=== PATIENT | female | born 1930 | race Caucasian/White ===

== ENCOUNTER 2018-01-13 23:04 | Emergency (ER) | payer MEDICARE, MEDICAID ==
[2018-03-15 13:15] VITALS: BMI 17.1
== END 2018-01-14 04:06 | disposition home or self-care (01) ==
LOC: D.ER 23:04
DX: S00.83XA Contusion of other part of head, initial encounter (principal); W19.XXXA Unspecified fall, initial encounter; Y93.89 Activity, other specified; Y92.129 Unspecified place in nursing home as the place of occurrence of the external cause; S02.2XXA Fracture of nasal bones, initial encounter for closed fracture; E11.9 Type 2 diabetes mellitus without complications; E03.9 Hypothyroidism, unspecified; H40.9 Unspecified glaucoma; K21.9 Gastro-esophageal reflux disease without esophagitis; F03.90 Unspecified dementia, unspecified severity, without behavioral disturbance, psychotic disturbance, mood disturbance, and anxiety; Z95.0 Presence of cardiac pacemaker

== ENCOUNTER 2018-01-24 14:29 | Emergency (ER) | payer MEDICARE, MEDICAID ==
[2018-01-24 15:13] LABS: BASOPHILS 0.3 % (0-2); EOSINOPHILS 0.9 % (0-7); HEMATOCRIT 36.1 % (36.0-48.0); HEMOGLOBIN 11.4 g/dL (12-16); IMMATURE GRANULOCYTES 0.5 % (0-5); LYMPHOCYTES 17.5 % (15-50); MCH 31.2 pg (26.0-34.0); MCHC 31.6 g/dL (31.0-37.0); MCV 98.9 fL (80.0-100.0); MONOCYTES 5.7 % (2-11); NEUTROPHILS 75.1 % (40-80); PLATELET COUNT 408 10x3/uL (130-400); RBC 3.65 10x6/uL (4.00-5.40); RDW 13.3 % (11.5-14.5); WBC 8.6 10x3/uL (4.8-10.8)
[2018-01-24 15:29] LABS: ALBUMIN 3.6 g/dL (3.4-5.0); ANION GAP 7.3 mmol/L (8-16); BILIRUBIN - TOTAL 0.2 mg/dL (0.2-1.3); CALCIUM 9.4 mg/dL (8.5-10.1); CARBON DIOXIDE 35.5 mmol/L (21.0-32.0); CREATININE - SERUM 1.1 mg/dL (0.6-1.3); POTASSIUM - SERUM 3.8 mmol/L (3.5-5.1); PROTEIN - SERUM 7.8 g/dL (6.4-8.2)
[2018-01-24 15:52] LABS: APPEARANCE CLEAR (CLEAR); BILIRUBIN NEGATIVE (NEGATIVE); COLOR YELLOW (YELLOW); GLUCOSE NEGATIVE (NEGATIVE); KETONE NEGATIVE (NEGATIVE); NITRITE NEGATIVE (NEGATIVE); PROTEIN TRACE mg/dL (NEGATIVE); SPECIFIC GRAVITY 1.015 (1.005-1.020); UROBILINOGEN NORMAL (NORMAL)
[2018-01-24 15:53] LABS: AMORPHOUS SEDIMENT <1+ /lpf (NONE SEEN); BACTERIA MANY /hpf (NONE SEEN); EPITHELIAL CELLS OCC /hpf (0-5); GRANULAR CAST NONE SEEN /lpf (NONE SEEN); HYALINE CAST NONE SEEN /lpf (NONE SEEN); MUCUS NONE SEEN /lpf (NONE SEEN); RED CELL CAST NONE SEEN /lpf (NONE SEEN); RED CELLS - URINE NONE SEEN /hpf (0-5); SPERMATOZOA NONE SEEN /hpf (NONE SEEN); WAXY CAST NONE SEEN /lpf (NONE SEEN); WHITE CELLS - URINE 0-5 /hpf (0-5); YEAST NONE SEEN /hpf (NONE SEEN)
== END 2018-01-24 19:08 | disposition home or self-care (01) ==
LOC: D.ER 14:29
PROVIDERS: Family Medicine
DX: K59.00 Constipation, unspecified (principal); N39.0 Urinary tract infection, site not specified; F03.90 Unspecified dementia, unspecified severity, without behavioral disturbance, psychotic disturbance, mood disturbance, and anxiety; E11.9 Type 2 diabetes mellitus without complications; K21.9 Gastro-esophageal reflux disease without esophagitis; H40.9 Unspecified glaucoma; E03.9 Hypothyroidism, unspecified; Z95.0 Presence of cardiac pacemaker

== ENCOUNTER 2018-03-14 08:40 | Inpatient (IN) | payer MEDICARE, MEDICAID ==
[~2018-03-14] VITALS: Ht 175.3 cm; Wt 52.6 kg
--- NOTE | ~2018-03-14 | EC ---
PATIENT:ERIKA PHELPS DATE OF SERVICE: 03/14/18 SEX: F MEDICAL RECORD: [id number] DATE OF : [birth year] LOCATION:[facility] AGE OF PATIENT: 87 ADMISSION DATE: 03/14/18 REFERRING PHYSICIAN: INTERPRETING PHYSICIAN: ARIANNA CAMACHO MD ECHOCARDIOGRAM REPORT ECHO CHARGES 4 ECHO COMPLETE Date: 03/15 CLINICAL DIAGNOSIS: CHF ECHOCARDIOGRAPHIC MEASUREMENTS (adult normal given) AC root (d.<3.7cm) 3.3 cm LV Septum d (<1.2 cm> 1.6 cm Valve Excursion 1.4 cm LV Septum (systole) 1.9 cm Left Atria (s.<4.0cm> 4.0 cm LVPW d(<1.2cm) 1.6 cm RV (d.<2.3cm) 5.1 cm LVPW (sytole) 1.8 cm LV diastole(<5.6CM) 4.1 cm MV E-F(>70mm/sec) cm LV systole 3.1 cm LVOT Diameter 1.7 cm MV exc.(>10mm) 1.2 cm Est.ejection fraction (50-75%) % DOPPLER: LVIT cm/sec A 85.0 cm/sec E 63.0 cm/sec LA cm/sec RVSP 55 mmHg LVOT 93 cm/sec AOP1/2T m/s Asc. Ao 151 cm/sec RVOT 83 cm/sec RA cm/sec PA 103 cm/sec AV Gradient Peak 9.10 mmHg AV Mean 4.63 mmHg AV Area 1.3 cm MV Gradient Peak 3.95 mmHg MV Mean 1.27 mmHg MV Area cm COMMENTS: Electronic Gaming Device Supervisor: 2 PAO BOOKER Guide Setter: 3 Dr. Mckenzie TAPE# PACS Pericardial Effusion N DATE OF SERVICE: Adequate 2-D echo, color flow and spectral Doppler, and M-mode. LVH present. LV internal dimension is normal. Wall motion is normal. EF is greater than or equal to 55%. Aortic valve is tricuspid. No evidence of stenosis by Doppler interrogation. Left atrium is upper limits of normal 4 cm. Mitral valve shows no prolapse. Mild MR. Right-sided chambers appear grossly normal. Mild TR. Estimated RV systolic pressure estimated greater than or equal to 55 mmHg via the continuity equation. ECHOCARDIOGRAM REPORT [id number] ERIKA PHELPS TRANSINT:[id number] Voice Confirmation ID: [id number] DOCUMENT ID: [id number] ARIANNA CAMACHO MD at 1214 CC: [id number] DICTATION DATE: 03/15/18 1230 CHAIR INSTALLER: 03/15/18 1650 DIS IN 03/18/18 [facility] [id number] [id number]
[2018-03-14 10:26] LABS: BASOPHILS 0.2 % (0-2); EOSINOPHILS 0.8 % (0-7); HEMATOCRIT 31.3 % (36.0-48.0); HEMOGLOBIN 10.2 g/dL (12-16); IMMATURE GRANULOCYTES 0.4 % (0-5); LYMPHOCYTES 17.8 % (15-50); MCH 30.7 pg (26.0-34.0); MCHC 32.6 g/dL (31.0-37.0); MCV 94.3 fL (80.0-100.0); MONOCYTES 6.6 % (2-11); NEUTROPHILS 74.2 % (40-80); PLATELET COUNT 421 10x3/uL (130-400); RBC 3.32 10x6/uL (4.00-5.40); RDW 15.4 % (11.5-14.5); WBC 8.5 10x3/uL (4.8-10.8)
[2018-03-14 10:31] LABS: ALBUMIN 2.6 g/dL (3.4-5.0); ANION GAP 10.2 mmol/L (8-16); BILIRUBIN - TOTAL 0.31 mg/dL (0.2-1.3); CALCIUM 8.7 mg/dL (8.5-10.1); CARBON DIOXIDE 27.1 mmol/L (21.0-32.0); CREATININE - SERUM 0.8 mg/dL (0.6-1.3); POTASSIUM - SERUM 4.3 mmol/L (3.5-5.1); PROTEIN - SERUM 6.1 g/dL (6.4-8.2)
[2018-03-14 10:38] LABS: MAGNESIUM - SERUM 1.9 mg/dL (1.8-2.4)
[2018-03-14 12:01] LABS: APPEARANCE SLT CLOUDY (CLEAR); BACTERIA MODERATE /hpf (NONE SEEN); BILIRUBIN NEGATIVE (NEGATIVE); COLOR YELLOW (YELLOW); EPITHELIAL CELLS 0-5 /hpf (0-5); GLUCOSE NEGATIVE (NEGATIVE); KETONE NEGATIVE (NEGATIVE); MUCUS <1+ /lpf (NONE SEEN); NITRITE NEGATIVE (NEGATIVE); PROTEIN 1+ mg/dL (NEGATIVE); RED CELLS - URINE 0-5 /hpf (0-5); SPECIFIC GRAVITY 1.015 (1.005-1.020); UROBILINOGEN NORMAL (NORMAL); YEAST >1+ WITH HYPHAE /hpf (NONE SEEN)
[2018-03-14] MEDS ORDERED: LISINOPRIL5 MG PO (12:58)
[2018-03-14] MEDS ORDERED: MEGACE400 MG/10 PO ×2 (12:59→13:00)
[2018-03-14] MEDS ORDERED: MULTIPLE VITAMI1 TA1 PO (13:02)
[2018-03-14] MEDS ORDERED: NAMENDA10 MG PO (13:04)
[2018-03-14] MEDS ORDERED: BETAPACE 80 MG80 MG PO (13:07)
[2018-03-14] MEDS ORDERED: ACETAMINOPHEN325 MG PO (13:31)
[2018-03-14 16:29] VITALS: BP 161/53; BMI 21.4
[2018-03-14 17:07] VITALS: BP 164/61
[2018-03-14 20:00] VITALS: BP 172/70
[2018-03-15] VITALS: BP 152/62
[2018-03-15 04:00] VITALS: BP 175/68
[2018-03-15 06:26] LABS: BASOPHILS 0.2 % (0-2); EOSINOPHILS 0.8 % (0-7); HEMATOCRIT 32.6 % (36.0-48.0); HEMOGLOBIN 10.5 g/dL (12-16); IMMATURE GRANULOCYTES 0.3 % (0-5); LYMPHOCYTES 16.6 % (15-50); MCH 30.4 pg (26.0-34.0); MCHC 32.2 g/dL (31.0-37.0); MCV 94.5 fL (80.0-100.0); MEAN PLATELET VOLUME 8.8 fL (7.4-10.4); MONOCYTES 7.1 % (2-11); PLATELET COUNT 388 10x3/uL (130-400); RBC 3.45 10x6/uL (4.00-5.40); RDW 15.3 % (11.5-14.5); WBC 8.7 10x3/uL (4.8-10.8)
[2018-03-15 06:57] LABS: ANION GAP 12.5 mmol/L (8-16); CALCIUM 9.1 mg/dL (8.5-10.1); CARBON DIOXIDE 29.5 mmol/L (21.0-32.0); THYROID STIMULATING HORMONE 2.76 uIU/mL (0.36-3.74)
[2018-03-15 09:09] VITALS: BP 185/75
[2018-03-15 11:53] VITALS: BP 171/61
[2018-03-15 13:15] VITALS: Ht 175.3 cm; Wt 52.6 kg
[2018-03-15 16:50] VITALS: BP 157/71
[2018-03-15 20:30] VITALS: BP 153/57
[2018-03-16 01:26] VITALS: BP 143/70
[2018-03-16 05:37] VITALS: BP 181/76
[2018-03-16 08:40] VITALS: BP 165/66
[2018-03-16 12:32] VITALS: BP 175/73
[2018-03-16 16:13] VITALS: BP 164/76
[2018-03-16 22:35] VITALS: BP 157/58
[2018-03-17 07:10] VITALS: BP 181/70
[2018-03-17 08:02] VITALS: BP 97/46
[2018-03-17 11:05] VITALS: BP 180/68
[2018-03-17 12:14] VITALS: BP 110/59
[2018-03-17] MEDS ORDERED: MAXIPIME 2 GM/D52 G1 IV (15:28)
[2018-03-17] MEDS ORDERED: DIFLUCAN100 MG PO (15:29)
[2018-03-17] MEDS ORDERED: LISINOPRIL10 MG PO (15:33)
[2018-03-17] MEDS ORDERED: NAMENDA5 MG PO (15:35)
[2018-03-17] MEDS ORDERED: COREG 3.1253.125 MG PO (15:37)
[2018-03-17 15:42] VITALS: BP 148/77
[2018-03-17 20:43] VITALS: BP 125/62
[2018-03-18 00:10] VITALS: BP 170/53
[2018-03-18 05:12] VITALS: BP 150/56
[2018-03-18 09:49] VITALS: BP 158/50
[2018-03-18] MEDS ORDERED: VANCOMYCIN 750750 MG IV (10:13)
== END 2018-03-18 11:02 | DRG 291 ==
LOC: D.ER 08:40 → D.M2 10:48 → D.MS 03-16 08:35
PROVIDERS: Emergency Medicine; Family Medicine
DX: I13.0 Hypertensive heart and chronic kidney disease with heart failure and stage 1 through stage 4 chronic kidney disease, or unspecified chronic kidney disease (principal); J18.9 Pneumonia, unspecified organism; B37.49 Other urogenital candidiasis; I50.32 Chronic diastolic (congestive) heart failure; E11.22 Type 2 diabetes mellitus with diabetic chronic kidney disease; N18.9 Chronic kidney disease, unspecified; I25.118 Atherosclerotic heart disease of native coronary artery with other forms of angina pectoris; K21.9 Gastro-esophageal reflux disease without esophagitis; F03.90 Unspecified dementia, unspecified severity, without behavioral disturbance, psychotic disturbance, mood disturbance, and anxiety; D64.9 Anemia, unspecified; Z74.09 Other reduced mobility; E03.9 Hypothyroidism, unspecified; R41.0 Disorientation, unspecified; N13.9 Obstructive and reflux uropathy, unspecified; Z95.0 Presence of cardiac pacemaker; Z95.1 Presence of aortocoronary bypass graft

== ENCOUNTER 2018-04-26 20:00 | Emergency (ER) | payer MEDICARE, MEDICAID ==
[~2018-04-26] VITALS: Ht 175.3 cm; Wt 63.5 kg
[~2018-04-26 20:00] MED LIST: ACETAMINOPHEN325 MG PO; BETAPACE 80 MG80 MG PO; COREG 3.1253.125 MG PO; DIFLUCAN100 MG PO; LISINOPRIL10 MG PO; LISINOPRIL5 MG PO; MAXIPIME 2 GM/D52 G1 IV; MEGACE400 MG/10 PO; MULTIPLE VITAMI1 TA1 PO; NAMENDA10 MG PO; NAMENDA5 MG PO; VANCOMYCIN 750750 MG IV
[2018-04-26 20:02] VITALS: Ht 175.3 cm; Wt 63.5 kg
[2018-04-26 23:43] VITALS: BP 128/79
== END 2018-04-26 23:44 | disposition other institution (70) ==
LOC: D.ER 20:00
DX: S09.90XA Unspecified injury of head, initial encounter (principal); S00.81XA Abrasion of other part of head, initial encounter; W19.XXXA Unspecified fall, initial encounter; Y93.89 Activity, other specified; Y92.019 Unspecified place in single-family (private) house as the place of occurrence of the external cause

== ENCOUNTER → 2018-05-07 15:49 | Outpatient (CLI) | payer MEDICARE, MEDICAID ==
[2018-04-26 20:02] VITALS: BMI 17.1
[~2018-05-07 15:49] MED LIST changes: +FERREX 150 PLUS1 CAP PO; +FLORAJEN3 CAPS460 MG PO; +ROCEPHIN 1 GM/D51 G1 IV
== END | disposition home or self-care (01) ==
LOC: D.CT 15:49
DX: S79.911A Unspecified injury of right hip, initial encounter (principal); W19.XXXA Unspecified fall, initial encounter; Y93.9 Activity, unspecified; Y92.9 Unspecified place or not applicable

== ENCOUNTER 2018-05-07 18:15 | Inpatient (IN) | payer MEDICARE ==
[~2018-05-07] VITALS: Ht 172.7 cm; Wt 63.5 kg
[~2018-05-07 18:15] MED LIST changes: -FERREX 150 PLUS1 CAP PO; -FLORAJEN3 CAPS460 MG PO; -ROCEPHIN 1 GM/D51 G1 IV
[2018-05-07 20:04] LABS: BASOPHILS 0.1 % (0-2); EOSINOPHILS 0.6 % (0-7); HEMATOCRIT 31.4 % (36.0-48.0); HEMOGLOBIN 10.2 g/dL (12-16); IMMATURE GRANULOCYTES 0.2 % (0-5); LYMPHOCYTES 12.5 % (15-50); MCH 30.3 pg (26.0-34.0); MCHC 32.5 g/dL (31.0-37.0); MCV 93.2 fL (80.0-100.0); MEAN PLATELET VOLUME 9.1 fL (7.4-10.4); NEUTROPHILS 80.6 % (40-80); PLATELET COUNT 354 10x3/uL (130-400); RBC 3.37 10x6/uL (4.00-5.40); WBC 8.8 10x3/uL (4.8-10.8)
[2018-05-07 20:09] LABS: APTT 27.7 SECONDS (22.8-39.4); INR 1.48 (0.85-1.17); PROTIME 17.4 SECONDS (11.6-15.0)
[2018-05-07 20:16] LABS: COLOR DK YELLOW (YELLOW)
[2018-05-07 20:17] LABS: APPEARANCE HAZY (CLEAR); BILIRUBIN NEGATIVE (NEGATIVE); GLUCOSE NEGATIVE (NEGATIVE); KETONE NEGATIVE (NEGATIVE); NITRITE POSITIVE (NEGATIVE); PROTEIN 1+ mg/dL (NEGATIVE); UROBILINOGEN NORMAL (NORMAL)
[2018-05-07 20:19] LABS: BACTERIA MANY /hpf (NONE SEEN); EPITHELIAL CELLS 0-5 /hpf (0-5); RED CELLS - URINE 0-5 /hpf (0-5); WHITE CELLS - URINE 25-50 /hpf (0-5)
[2018-05-07 20:53] LABS: ALBUMIN 2.9 g/dL (3.4-5.0); ALKALINE PHOSPHATASE 67 U/L (46-116); ALT (SGPT) 21 U/L (10-68); BILIRUBIN - TOTAL 0.46 mg/dL (0.2-1.3); CALC OSMOLALITY 284 mosm/kg (275-300); CALCIUM 8.8 mg/dL (8.5-10.1); CARBON DIOXIDE 29.8 mmol/L (21.0-32.0); CHLORIDE - SERUM 106 mmol/L (98-107); CREATININE - SERUM 0.5 mg/dL (0.6-1.3); GLUCOSE 117 mg/dL (74-106); POTASSIUM - SERUM 4.7 mmol/L (3.5-5.1); PROTEIN - SERUM 6.8 g/dL (6.4-8.2); SODIUM 142 mmol/L (136-145); UREA NITROGEN 16 mg/dL (7-18); eGFR NON AFRICAN AMERICAN > 90 mL/min (90-120)
[2018-05-08 00:43] VITALS: BP 135/57; BMI 21.3
[2018-05-08 04:03] VITALS: BP 124/54
[2018-05-08 06:26] LABS: ALBUMIN 2.5 g/dL (3.4-5.0); ANION GAP 9.1 mmol/L (8-16); BILIRUBIN - TOTAL 0.39 mg/dL (0.2-1.3); CALCIUM 8.8 mg/dL (8.5-10.1); POTASSIUM - SERUM 4.1 mmol/L (3.5-5.1); PROTEIN - SERUM 6.2 g/dL (6.4-8.2)
[2018-05-08 06:27] LABS: CREATININE - SERUM 0.8 mg/dL (0.6-1.3)
[2018-05-08 07:26] LABS: BASOPHILS 0.6 % (0-2); EOSINOPHILS 1.3 % (0-7); HEMATOCRIT 28.3 % (36.0-48.0); HEMOGLOBIN 8.9 g/dL (12-16); IMMATURE GRANULOCYTES 0.3 % (0-5); LYMPHOCYTES 16.1 % (15-50); MCH 29.7 pg (26.0-34.0); MCHC 31.4 g/dL (31.0-37.0); MCV 94.3 fL (80.0-100.0); MEAN PLATELET VOLUME 8.8 fL (7.4-10.4); MONOCYTES 7.5 % (2-11); NEUTROPHILS 74.2 % (40-80); PLATELET COUNT 361 10x3/uL (130-400); RDW 15.2 % (11.5-14.5); WBC 7.1 10x3/uL (4.8-10.8)
[2018-05-08 11:12] VITALS: Ht 172.7 cm; Wt 63.5 kg
[2018-05-08 12:01] VITALS: BP 112/60
[2018-05-08 16:08] VITALS: BP 129/65
[2018-05-08 20:00] VITALS: BP 164/96
[2018-05-09 04:00] VITALS: BP 149/81
[2018-05-09 06:43] LABS: BASOPHILS 0.4 % (0-2); EOSINOPHILS 0.9 % (0-7); HEMATOCRIT 30.5 % (36.0-48.0); HEMOGLOBIN 9.7 g/dL (12-16); IMMATURE GRANULOCYTES 0.3 % (0-5); LYMPHOCYTES 14.6 % (15-50); MCHC 31.8 g/dL (31.0-37.0); MCV 94.4 fL (80.0-100.0); MONOCYTES 6.9 % (2-11); NEUTROPHILS 76.9 % (40-80); PLATELET COUNT 378 10x3/uL (130-400); RBC 3.23 10x6/uL (4.00-5.40); RDW 15.1 % (11.5-14.5)
[2018-05-09 06:55] LABS: WBC 9.6 10x3/uL (4.8-10.8)
[2018-05-09 07:04] LABS: ANION GAP 12.4 mmol/L (8-16); CALCIUM 9.2 mg/dL (8.5-10.1); CARBON DIOXIDE 27.4 mmol/L (21.0-32.0)
[2018-05-09 07:05] LABS: CREATININE - SERUM 1.2 mg/dL (0.6-1.3); POTASSIUM - SERUM 4.8 mmol/L (3.5-5.1)
[2018-05-09 08:37] VITALS: BP 132/60
[2018-05-09 12:15] VITALS: BP 127/52
[2018-05-09 20:00] VITALS: BP 121/43
[2018-05-10 04:00] VITALS: BP 106/47
[2018-05-10 08:58] VITALS: BP 152/93
[2018-05-10] MEDS ORDERED: ROCEPHIN 1 GM/D51 G1 IV (14:46)
[2018-05-10] MEDS ORDERED: COREG 3.1253.125 MG PO (14:46)
[2018-05-10] MEDS ORDERED: FERREX 150 PLUS1 CAP PO (14:46)
[2018-05-10] MEDS ORDERED: FLORAJEN3 CAPS460 MG PO (14:48)
[2018-05-10 16:06] VITALS: BP 114/60
== END 2018-05-10 17:31 | DRG 536 ==
LOC: D.ER 18:15 → D.EDHOLD 21:42 → D.MS 21:42
PROVIDERS: Family Medicine
DX: S72.111A Displaced fracture of greater trochanter of right femur, initial encounter for closed fracture (principal); N39.0 Urinary tract infection, site not specified; W18.30XA Fall on same level, unspecified, initial encounter; Y92.121 Bathroom in nursing home as the place of occurrence of the external cause; I10 Essential (primary) hypertension; I25.10 Atherosclerotic heart disease of native coronary artery without angina pectoris; F03.90 Unspecified dementia, unspecified severity, without behavioral disturbance, psychotic disturbance, mood disturbance, and anxiety; E03.9 Hypothyroidism, unspecified; K21.9 Gastro-esophageal reflux disease without esophagitis; D64.9 Anemia, unspecified; H40.9 Unspecified glaucoma; Z95.1 Presence of aortocoronary bypass graft; Z95.0 Presence of cardiac pacemaker; M19.90 Unspecified osteoarthritis, unspecified site